=== PATIENT | female | born 1975 | race Caucasian/White ===

== ENCOUNTER 2018-12-23 17:57 | Emergency (ER) | payer BC, MEDICAID ==
[~2018-12-23] VITALS: Ht 154.9 cm; Wt 68.9 kg
[2018-12-23 18:04] VITALS: BP 152/90
--- NOTE | 2018-12-23 18:09 | NUR ---
TO LOBBY A/W BED, AMBULATORY, VSS ERMD NOTED
--- NOTE | 2018-12-23 18:35 | NUR ---
PT AMBULATED TO BED 02.
--- NOTE | 2018-12-23 18:40 | NUR ---
43Y/F BIB WITH C/O AB PAIN X 1 WK. -N/V/D . PT STATES SHE HAS HEMATURIA AND PAIN WITH URINATION. ACTIVE BS X4, VSS AT THIS TIME, BED DOWN, BEDRAIL UP X 1, ER MD AWARE NOTIFIED OF PT STATUS.
--- NOTE | 2018-12-23 19:37 | NUR ---
Dr. Gonzalez evaluating patient at bedside.
[2018-12-23 20:10] LABS: BASOPHILS % (AUTO) 0.6 % (0.0-2.0); EOSINOPHILS # (AUTO) 0.1 K/uL (0-0.4); EOSINOPHILS % (AUTO) 1.1 % (0.0-4.0); HEMATOCRIT 31.1 % (36-48); HEMOGLOBIN 9.8 g/dL (12.0-16.0); LYMPHOCYTES # (AUTO) 2.1 K/uL (2.5-16.5); LYMPHOCYTES % (AUTO) 27.9 % (20.5-51.1); MEAN CORPUSCULAR HEMOGLOBIN 23 pg (27-31); MEAN CORPUSCULAR HGB CONC 31 g/dL (33-37); MEAN CORPUSCULAR VOLUME 72.3 fL (80-94); MONOCYTES # (AUTO) 0.6 K/uL (0.8-1.0); MONOCYTES % (AUTO) 8.3 % (1.7-9.3); NEUTROPHILS # (AUTO) 4.8 K/uL (1.8-7.7); NEUTROPHILS % (AUTO) 62.1 % (42.2-75.2); PLATELET COUNT (AUTO) 240 K/uL (140-450); RED BLOOD CELL COUNT(AUTO) 4.31 MIL/uL (4.20-5.40); RED CELL DISTRIBUTION WIDTH 16.4 % (11.6-13.7); WHITE BLOOD COUNT (AUTO) 7.7 K/uL (4.8-10.8)
[2018-12-23] MEDS ORDERED: KETOROLAC 30 MG/ML VIAL IM ONE (20:10)
--- NOTE | 2018-12-23 20:13 | NUR ---
PT TO CT VIA [facility] BY [employer].
[2018-12-23 20:16] LABS: APPEARANCE,URINE SL CLOUDY (CLEAR); BILIRUBIN,URINE NEGATIVE (NEGATIVE); BLOOD, URINE 3+ (NEGATIVE); COLOR,URINE YELLOW (YELLOW); LEUKOCYTE ESTERASE ,URINE NEGATIVE (NEGATIVE); NITRITE, URINE NEGATIVE (NEGATIVE); UGLUCOSE 3+ (NEGATIVE)
[2018-12-23 20:22] LABS: RBC,URINE 11-20 (MOD) /HPF (0-5)
[2018-12-23 20:29] LABS: ANION GAP 7.2 (8-16); CARBON DIOXIDE 26.5 mmol/L (21-32); CREATININE 0.6 mg/dL (0.6-1.3); POTASSIUM 3.7 mmol/L (3.5-5.1)
[2018-12-23 20:31] LABS: ALBUMIN 3.3 g/dL (3.4-5.0); TOTAL BILIRUBIN 0.2 mg/dL (0.0-1.0)
[2018-12-23 21:52] VITALS: BP 163/59
--- NOTE | 2018-12-23 21:52 | NUR ---
Patient discharged with v/s stable. Written and verbal after care instructions given and explained. Patient alert, oriented and verbalized understanding of instructions. Ambulatory with steady gait. All questions addressed prior to discharge. ID band removed. Patient advised to follow up with PMD. Rx of MiraLax Powder given. Patient educated on indication of medication including possible reaction and side effects. Opportunity to ask questions provided and answered.
== END 2018-12-23 21:52 | disposition home or self-care (01) ==
LOC: MED 17:57
DX: K59.00 Constipation, unspecified (principal); N83.202 Unspecified ovarian cyst, left side; Z88.6 Allergy status to analgesic agent; Z88.5 Allergy status to narcotic agent
CPT/HCPCS: 36415; 74176; 80053; 81001; 81025; 85025; 87086; 87186; 96372; 99284; J1885

== ENCOUNTER 2020-01-28 19:49 | Emergency (ER) | payer BC ==
[~2020-01-28] VITALS: Ht 162.6 cm; Wt 69.9 kg
[2020-01-28 19:55] VITALS: BP 113/71
[2020-01-28] MEDS ORDERED: ONDANSETRON 4 MG/2 ML VIAL IVP ONE (20:45)
[2020-01-28] MEDS ORDERED: NACL 0.9% 1,000 ML IV ONE (20:45)
[2020-01-28] MEDS ORDERED: KETOROLAC 30 MG/ML VIAL IVP ONE (20:45)
[2020-01-28 21:11] LABS: BASOPHILS % (AUTO) 0.6 % (0.0-2.0); EOSINOPHILS % (AUTO) 0.4 % (0.0-4.0); HEMATOCRIT 31.7 % (36-48); HEMOGLOBIN 10.1 g/dL (12.0-16.0); LYMPHOCYTES # (AUTO) 0.8 K/uL (2.5-16.5); LYMPHOCYTES % (AUTO) 11.4 % (20.5-51.1); MEAN CORPUSCULAR HEMOGLOBIN 23 pg (27-31); MEAN CORPUSCULAR HGB CONC 32 g/dL (33-37); MEAN CORPUSCULAR VOLUME 71.1 fL (80-94); MONOCYTES # (AUTO) 0.5 K/uL (0.8-1.0); MONOCYTES % (AUTO) 7.6 % (1.7-9.3); NEUTROPHILS # (AUTO) 5.7 K/uL (1.8-7.7); PLATELET COUNT (AUTO) 242 K/uL (140-450); RED BLOOD CELL COUNT(AUTO) 4.46 MIL/uL (4.20-5.40); RED CELL DISTRIBUTION WIDTH 17.1 % (11.6-13.7); WHITE BLOOD COUNT (AUTO) 7.1 K/uL (4.8-10.8)
[2020-01-28 21:18] LABS: ALBUMIN 3.2 g/dL (3.4-5.0); ANION GAP 12.4 (8-16); CARBON DIOXIDE 25.6 mmol/L (21-32); CREATININE 0.6 mg/dL (0.6-1.3); TOTAL BILIRUBIN 0.4 mg/dL (0.0-1.0)
[2020-01-28 21:31] LABS: APPEARANCE,URINE CLEAR (CLEAR); BILIRUBIN,URINE NEGATIVE (NEGATIVE); BLOOD, URINE TRACE-L (NEGATIVE); COLOR,URINE AMBER (YELLOW); LEUKOCYTE ESTERASE ,URINE NEGATIVE (NEGATIVE); NITRITE, URINE NEGATIVE (NEGATIVE); UGLUCOSE NEGATIVE (NEGATIVE)
[2020-01-28 23:04] VITALS: BP 113/71
== END 2020-01-28 23:05 | disposition home or self-care (01) ==
LOC: MED 19:49
DX: R11.2 Nausea with vomiting, unspecified (principal); R19.7 Diarrhea, unspecified; E11.9 Type 2 diabetes mellitus without complications; Z88.5 Allergy status to narcotic agent; Z90.49 Acquired absence of other specified parts of digestive tract; Z98.890 Other specified postprocedural states
CPT/HCPCS: 36415; 80053; 81003; 83690; 85025; 96361; 96374; 96375; 99284; J1885; J2405; J7030

== ENCOUNTER 2021-05-09 20:27 | Emergency (ER) | payer BC ==
[~2021-05-09] VITALS: Ht 152.4 cm; Wt 63.5 kg
[2021-05-09 20:34] VITALS: BP 149/59
--- NOTE | 2021-05-09 20:34 | NUR ---
TO BED AMBULATORY
--- NOTE | 2021-05-09 20:40 | NUR ---
PATIENT BIB SELF FOR C/O URINARY BURNING X 2 DAYS PATIENT STATES, "THE PAIN HAS GOTTEN WORSE AND ITS GOING TO MY BACK ON BOTH SIDES." PATIENT STATES OTC MEDICATIONS INEFFECTIVE FOR PAIN MANAGEMENT. MEDHX: DM TYPE II, HTN, HYPERLIPIDEMIA SEE ALLERGY LIST.
--- NOTE | 2021-05-09 21:13 | NUR ---
ERMD AT BEDSIDE FOR MEDICAL EVALUATION.
[2021-05-09] MEDS ORDERED: IBUPROFEN 600 MG TAB PO ONE (21:20)
--- NOTE | 2021-05-09 21:32 | NUR ---
ACCUCHECK: 34. PATIENT AXO X4. DENIES ANY CHANGE IN SYMPTOMS AT THIS TIME. PATIENT GIEVEN, ORANGE JUICE, CRACKERS, AND HAM SANDWICH. IV PLACED IN L HAND. ERMD MADE AWARE AND NEW ORDERS GIVEN. PATIENT PLACED ON INSTRUCTOR DRAMATIC ARTS.
--- NOTE | 2021-05-09 21:46 | NUR ---
LAB AT BEDSIDE.
[2021-05-09 21:55] LABS: BASOPHILS % (AUTO) 0.4 % (0.0-2.0); EOSINOPHILS # (AUTO) 0.1 K/uL (0-0.4); EOSINOPHILS % (AUTO) 1.1 % (0.0-4.0); HEMATOCRIT 30.9 % (36-48); HEMOGLOBIN 9.7 g/dL (12.0-16.0); LYMPHOCYTES # (AUTO) 4.2 K/uL (2.5-16.5); LYMPHOCYTES % (AUTO) 40.5 % (20.5-51.1); MEAN CORPUSCULAR HEMOGLOBIN 22 pg (27-31); MEAN CORPUSCULAR HGB CONC 31 g/dL (33-37); MEAN CORPUSCULAR VOLUME 68.4 fL (80-94); MONOCYTES % (AUTO) 9.8 % (1.7-9.3); NEUTROPHILS # (AUTO) 5.1 K/uL (1.8-7.7); NEUTROPHILS % (AUTO) 48.2 % (42.2-75.2); PLATELET COUNT (AUTO) 290 K/uL (140-450); RED BLOOD CELL COUNT(AUTO) 4.51 MIL/uL (4.20-5.40); RED CELL DISTRIBUTION WIDTH 17.1 % (11.6-13.7); WHITE BLOOD COUNT (AUTO) 10.5 K/uL (4.8-10.8)
[2021-05-09] MEDS ORDERED: DEXTROSE 50% 50 ML SYR IVP ONE (22:00)
[2021-05-09 22:17] LABS: ALBUMIN 3.5 g/dL (3.4-5.0); ANION GAP 14.3 (8-16); CARBON DIOXIDE 24.1 mmol/L (21-32); CREATININE 0.6 mg/dL (0.6-1.3); POTASSIUM 3.4 mmol/L (3.5-5.1); TOTAL BILIRUBIN 0.3 mg/dL (0.0-1.0)
[2021-05-09 23:00] LABS: APPEARANCE,URINE SL CLOUDY (CLEAR); BILIRUBIN,URINE NEGATIVE (NEGATIVE); BLOOD, URINE NEGATIVE (NEGATIVE); COLOR,URINE YELLOW (YELLOW); LEUKOCYTE ESTERASE ,URINE TRACE (NEGATIVE); NITRITE, URINE NEGATIVE (NEGATIVE); PH,URINE 6.5 (5.0-9.0); UGLUCOSE 2+ (NEGATIVE)
[2021-05-09 23:02] LABS: RBC,URINE 0-5 /HPF (0-5)
[2021-05-09 23:03] LABS: WBC,URINE TOO MANY TO COUNT /HPF (0-5)
--- NOTE | 2021-05-09 23:12 | NUR ---
PATIENT AMBULATED TO RESTROOM WITH STEADY GAIT. PATIENT STATES PAIN HAS REDUCED TO 2/10 FOR BILATERAL FLANK PAIN.
[2021-05-09] MEDS ORDERED: cefTRIAXone 1,000 MG VIAL ONE (23:21)
[2021-05-09] MEDS ORDERED: CEPH-588 PO (23:23)
--- NOTE | 2021-05-09 23:49 | NUR ---
VIKAD MADE AWARE OF PATIENT'S ACCUCHECK. D/C ORDERED GIVEN.
--- NOTE | 2021-05-10 00:12 | NUR ---
IV removed, catheter intact and site benign. Applied folded 4x4 gauze and tape to stop bleeding.
[2021-05-10 00:15] VITALS: BP 132/88
== END 2021-05-10 00:15 | disposition home or self-care (01) ==
LOC: MED 20:27
DX: N39.0 Urinary tract infection, site not specified (principal); E16.2 Hypoglycemia, unspecified; E11.9 Type 2 diabetes mellitus without complications; I10 Essential (primary) hypertension; E78.00 Pure hypercholesterolemia, unspecified; Z88.5 Allergy status to narcotic agent; Z88.8 Allergy status to other drugs, medicaments and biological substances
CPT/HCPCS: 36415; 80053; 81001; 81025; 83690; 85025; 87086; 96365; 96375; 99284; J0696

== ENCOUNTER 2021-05-28 09:33 | Emergency (ER) | payer BC ==
[~2021-05-28] VITALS: Ht 162.6 cm; Wt 65.8 kg
[~2021-05-28 09:33] MED LIST: CEPH-588 PO
[2021-05-28 09:38] VITALS: BP 141/64
--- NOTE | 2021-05-28 09:40 | NUR ---
PATIENT AMBULATED TO BED 12
--- NOTE | 2021-05-28 10:00 | NUR ---
45 Y/O FEMALE C/O SUPRAPUBIC AND LOW BACK PAIN, BURNING AND FREQUENCY OF URINATION, ONSET 2 DAYS AGO. PATIENT ALSO C/O VAGINAL ITCHING. HX OF TREATMENT WITH KEFLEX 500MG COMPLETED 10 DAY COURSE ON 05/18. PATIENT IS AWAKE ALERT, INDONESIAN SPEAKING, SKIN IS W/D RESP UNLABORED, ABDOMEN IS SOFT TO PALP, NON DISTENDED, POINTS TO SUPRAPUBIC AND LOWER BACK, NO GRIMACE WITH EXAM. URINE OBTAINED FOR DIP AND UHCG, RESULTS TO . HX OF DM, HTN, HLD
[2021-05-28] MEDS ORDERED: NACL 0.9% 1,000 ML IV ONE (10:25)
[2021-05-28] MEDS ORDERED: PHENAZOPYRIDINE 100 MG TAB PO ONE (10:25)
--- NOTE | 2021-05-28 10:53 | NUR ---
clinical genetics laboratory chief at bedside for blood draw
[2021-05-28 11:08] LABS: BASOPHILS % (AUTO) 0.5 % (0.0-2.0); EOSINOPHILS % (AUTO) 0.5 % (0.0-4.0); HEMATOCRIT 33.4 % (36-48); HEMOGLOBIN 10.4 g/dL (12.0-16.0); LYMPHOCYTES # (AUTO) 1.5 K/uL (2.5-16.5); LYMPHOCYTES % (AUTO) 19.9 % (20.5-51.1); MEAN CORPUSCULAR HEMOGLOBIN 22 pg (27-31); MEAN CORPUSCULAR HGB CONC 31 g/dL (33-37); MEAN CORPUSCULAR VOLUME 70.4 fL (80-94); MONOCYTES # (AUTO) 0.4 K/uL (0.8-1.0); MONOCYTES % (AUTO) 5.9 % (1.7-9.3); NEUTROPHILS # (AUTO) 5.4 K/uL (1.8-7.7); NEUTROPHILS % (AUTO) 73.2 % (42.2-75.2); PLATELET COUNT (AUTO) 240 K/uL (140-450); RED BLOOD CELL COUNT(AUTO) 4.75 MIL/uL (4.20-5.40); RED CELL DISTRIBUTION WIDTH 18.2 % (11.6-13.7); WHITE BLOOD COUNT (AUTO) 7.4 K/uL (4.8-10.8)
[2021-05-28] MEDS: fentaNYL citrate 0.05 MG/ML VIAL IVP ONE ×2 (11:14→11:19)
--- NOTE | 2021-05-28 11:15 | NUR ---
US AT BEDSIDE
--- NOTE | 2021-05-28 11:15 | NUR ---
[facility]ga in [facility] - 05/28/21 at 1115 by [email or web address] US AT BEDSIDE
[2021-05-28 11:21] LABS: ALBUMIN 3.7 g/dL (3.4-5.0); ANION GAP 14.7 (8-16); CARBON DIOXIDE 21.5 mmol/L (21-32); CREATININE 0.6 mg/dL (0.6-1.3); POTASSIUM 4.2 mmol/L (3.5-5.1); TOTAL BILIRUBIN 0.3 mg/dL (0.0-1.0)
--- NOTE | 2021-05-28 12:20 | NUR ---
UP TO BR WITH ASSIST.
[2021-05-28 13:24] LABS: APPEARANCE,URINE CLEAR (CLEAR); BILIRUBIN,URINE NEGATIVE (NEGATIVE); BLOOD, URINE NEGATIVE (NEGATIVE); COLOR,URINE YELLOW (YELLOW); NITRITE, URINE NEGATIVE (NEGATIVE); PH,URINE 6.5 (5.0-9.0); UGLUCOSE 3+ (NEGATIVE)
[2021-05-28 13:37] LABS: LEUKOCYTE ESTERASE ,URINE 1+ (NEGATIVE); RBC,URINE 0-5 /HPF (0-5)
[2021-05-28] MEDS ORDERED: ACET-5629 PO (13:48)
[2021-05-28] MEDS ORDERED: NAPR-54 PO (13:48)
[2021-05-28] MEDS ORDERED: NITR100C7 PO (13:48)
[2021-05-28 14:00] VITALS: BP 163/58
--- NOTE | 2021-05-28 14:00 | NUR ---
Patient discharged with v/s stable. Written and verbal after care instructions given and explained. Patient alert, oriented and verbalized understanding of instructions. Ambulatory with steady gait. All questions addressed prior to discharge. ID band removed. Patient advised to follow up with PMD. Rx of PERCOCET, NAPROXEN, MACROBID given. Patient educated on indication of medication including possible reaction and side effects. Opportunity to ask questions provided and answered.
--- NOTE | 2021-05-31 16:44 | NUR ---
LATE ENTRY---Urine culture results received from lab. Results shown to Dr. Chau . No new orders needed at this time. Treatment appropriate. Copy placed in C&S folder.
== END 2021-05-28 14:00 | disposition home or self-care (01) ==
LOC: MED 09:33
DX: N39.0 Urinary tract infection, site not specified (principal); N83.202 Unspecified ovarian cyst, left side; E11.9 Type 2 diabetes mellitus without complications; I10 Essential (primary) hypertension; Z79.899 Other long term (current) drug therapy; Z90.49 Acquired absence of other specified parts of digestive tract; Z98.890 Other specified postprocedural states; Z88.5 Allergy status to narcotic agent; Z88.6 Allergy status to analgesic agent
CPT/HCPCS: 36415; 76856; 80053; 81001; 81025; 82948; 83690; 85025; 87086; 93976; 96361; 96374; 99284; J3010

== ENCOUNTER 2022-01-27 08:28 | Emergency (ER) | payer BC ==
[~2022-01-27] VITALS: Ht 162.6 cm; Wt 73.5 kg
[~2022-01-27 08:28] MED LIST changes: +ACET-5629 PO; +NAPR-54 PO; +NITR100C7 PO
[2022-01-27 08:34] VITALS: BP 141/67
--- NOTE | 2022-01-27 08:40 | NUR ---
PT W/C ASSISTED TO ER BED 3
--- NOTE | 2022-01-27 09:15 | NUR ---
46 Y/O F PRESENTS TO ED WITH DIZZINESS, NAUSEA, VOMITING SINCE YESTERDAY 1400 SUDDENLY. ACCUCHECK 222. PT STATES NO SICK CONTACTS. VACCINATED FOR FLU AND PNUMONIA, NOT VACCINATED FOR COVID. SKIN IS PALE/WARM/DRY; AAOX4 AMBULATE WITH ASSIST; LUNGS CLEAR BL; HR EVEN AND REGULAR; PT DENIES ANY FEVER, CP, SOB, OR COUGH AT THIS TIME; PATIENT STATES PAIN OF 0/10 AT THIS TIME; VSS; PATIENT POSITIONED FOR COMFORT; HOB ELEVATED; BEDRAILS UP X2; BED DOWN. ER MD MADE AWARE OF PT STATUS. PMH: HTN, DM, ASTHMA, VERTIGO, HIGH CHOLESTEROL MEDS: ALBUTEROL, LISINOPRIL 40, INSULIN PEN, INSULIN HUMALOG, ZOCOR ALLERGIES: MORPHINE, NORCO, TRAMADOL.
--- NOTE | 2022-01-27 09:25 | NUR ---
INSERTED 22G IV TO L ANKLE WITH HELP FROM NORMA RN. DUE MEDS GIVEN. BOLUS HANGING PER MD ORDER.
[2022-01-27] MEDS: NACL 0.9% 1,000 ML IV ONE ×2 (09:28→10:33)
[2022-01-27] MEDS: ONDANSETRON 4 MG/2 ML VIAL IVP ONE (09:29)
--- NOTE | 2022-01-27 09:45 | NUR ---
20 ML BILE-LIKE EMESIS NOTED.
--- NOTE | 2022-01-27 10:11 | NUR ---
XRAY AT BEDSIDE.
[2022-01-27] MEDS: diphenhydrAMINE 50 MG/ML VIAL IVP ONE (10:18)
[2022-01-27] MEDS: METOCLOPRAMIDE 10 MG/2 ML INJ VIAL IVP ONE (10:19)
[2022-01-27 10:21] LABS: BASOPHILS % (AUTO) 0.4 % (0.0-2.0); EOSINOPHILS % (AUTO) 0.2 % (0.0-4.0); HEMATOCRIT 31.2 % (36-48); HEMOGLOBIN 9.6 g/dL (12.0-16.0); LYMPHOCYTES # (AUTO) 1.2 K/uL (2.5-16.5); LYMPHOCYTES % (AUTO) 10.7 % (20.5-51.1); MEAN CORPUSCULAR HEMOGLOBIN 21 pg (27-31); MEAN CORPUSCULAR HGB CONC 31 g/dL (33-37); MEAN CORPUSCULAR VOLUME 68.1 fL (80-94); MONOCYTES # (AUTO) 0.5 K/uL (0.8-1.0); MONOCYTES % (AUTO) 4.9 % (1.7-9.3); NEUTROPHILS # (AUTO) 9.3 K/uL (1.8-7.7); NEUTROPHILS % (AUTO) 83.8 % (42.2-75.2); PLATELET COUNT (AUTO) 246 K/uL (140-450); RED BLOOD CELL COUNT(AUTO) 4.59 MIL/uL (4.20-5.40); RED CELL DISTRIBUTION WIDTH 16.3 % (11.6-13.7); WHITE BLOOD COUNT (AUTO) 11.1 K/uL (4.8-10.8)
[2022-01-27 10:24] LABS: ALBUMIN 3.2 g/dL (3.4-5.0); CARBON DIOXIDE 23.3 mmol/L (21-32); CREATININE 0.5 mg/dL (0.6-1.3); POTASSIUM 4.3 mmol/L (3.5-5.1); TOTAL BILIRUBIN 0.4 mg/dL (0.0-1.0)
--- NOTE | 2022-01-27 11:25 | NUR ---
PT VOIDED 600 ML CLEAR YELLOW URINE IN BEDPAN WITH ASSISSTANCE. URINE COLLECTED FOR DIP/PREG.
[2022-01-27] MEDS ORDERED: ONDA-188 PO (11:36)
[2022-01-27 13:35] VITALS: BP 139/53
--- NOTE | 2022-01-27 13:36 | NUR ---
Patient discharged with v/s stable. Written and verbal after care instructions given and explained. Patient alert, oriented and verbalized understanding of instructions. Wheel Chair Assisted with to car. All questions addressed prior to discharge. ID band removed. Patient advised to follow up with PMD. Rx of ZOFRAN given. Patient educated on indication of medication including possible reaction and side effects. Opportunity to ask questions provided and answered.
== END 2022-01-27 13:36 | disposition home or self-care (01) ==
LOC: MED 08:28
DX: R11.2 Nausea with vomiting, unspecified (principal); D50.9 Iron deficiency anemia, unspecified; E11.65 Type 2 diabetes mellitus with hyperglycemia; Z88.5 Allergy status to narcotic agent; Z88.6 Allergy status to analgesic agent
CPT/HCPCS: 36415; 71045; 74018; 80053; 81002; 81025; 82150; 83690; 85025; 93005; 96361; 96374; 96375; 99285; J1200; J2405; J2765; J7030; 99284